=== PATIENT | female | born 1960 | race Two or more races ===

== ENCOUNTER 2019-03-06 05:54 | Day surgery (SDC) | payer OTHER | END 2019-03-06 10:45 | disposition home or self-care (01) | LOC: AMB-ENDOS 05:54 | DX: K62.4 Stenosis of anus and rectum (principal); K57.30 Diverticulosis of large intestine without perforation or abscess without bleeding ==

== ENCOUNTER 2019-03-30 15:34 | Inpatient (IN) | payer OTHER ==
[~2019-03-30] VITALS: Ht 152.4 cm; Wt 9.1 kg
[2019-04-16] MEDS ORDERED: ZESTORETIC 10-1 EACH PO (13:23)
[2019-04-16] MEDS ORDERED: PREVACID30 MG PO (13:24)
[2019-04-16] MEDS ORDERED: PEPCID AC20 MG PO (13:24)
[2019-04-23] MEDS ORDERED: OXYC1TAB9 PO (17:30)
[2019-04-23] MEDS ORDERED: INTESTINEX680 M1 PO (17:31)
== END 2019-04-23 19:33 | disposition home or self-care (01) | DRG 330 ==
LOC: SURH 04-19 07:44 → O/R 04-19 07:44 → SURG 04-19 10:30 → SURH 04-19 16:52
PROVIDERS: ADMIT Surgery
PROC: 0DJD8ZZ Inspection of Lower Intestinal Tract, Via Natural or Artificial Opening Endoscopic (ICD-10-PCS; 2019-04-19)
PROC: 0WQF0ZZ Repair Abdominal Wall, Open Approach (ICD-10-PCS; 2019-04-19)
PROC: 0KUL0KZ Supplement Left Abdomen Muscle with Nonautologous Tissue Substitute, Open Approach (ICD-10-PCS; 2019-04-19)
PROC: 0KUK0KZ Supplement Right Abdomen Muscle with Nonautologous Tissue Substitute, Open Approach (ICD-10-PCS; 2019-04-19)
PROC: 0DTN4ZZ Resection of Sigmoid Colon, Percutaneous Endoscopic Approach (ICD-10-PCS; principal; 2019-04-19 10:30)
DX: K57.20 Diverticulitis of large intestine with perforation and abscess without bleeding (principal); K43.0 Incisional hernia with obstruction, without gangrene; K42.0 Umbilical hernia with obstruction, without gangrene; R73.01 Impaired fasting glucose